=== PATIENT | male | born 1975 | race Caucasian/White ===

== ENCOUNTER 2017-11-30 13:57 | Outpatient (CLI) | payer OTHER ==
[~2017-11-30 13:57] MED LIST: EPINEPHrine 1 MG/ML AMP ONE; Gadobenate Dimeglumine 529 MG/1 ML (20ML VIAL) ONE; Iopamidol 300 61% 50 ML VIAL FS ONE; Lidocaine 1% PF 10 ML AMP ONE
--- NOTE | 2017-11-30 16:37 | RAD ---
FLUOROSCOPIC GUIDED RIGHT SHOULDER ARTHROGRAM: DATE: 11/30/17. HISTORY: Right shoulder pain. FLUOROSCOPY: Total fluoroscopy time is 0.5 minutes with a total dose of 29.88 mGy. TECHNIQUE: The procedure including risks and complications were explained to the patient and informed consent wa s obtained. The patient was placed on the fluoroscopy table in the supine position. The right shoul servando was placed in external rotation. An area overlying the superior aspect of the right glenohumeral joint was marked, and the area was me ticulously prepped and draped in the usual sterile fashion. The skin and subcutaneous tissues were i nfiltrated with buffered 1% Lidocaine for local anesthesia at the intended puncture site. A 22-gauge needle was advanced into the right glenohumeral joint. The inner stylette was removed, and a small amount of contrast was injected with free flow of contrast away from the tip of the needle in the reg ion of the glenohumeral joint. As a result, approximately 12 mL of a mixture consisting of Gadoliniu m, nonionic contrast, Lidocaine, normal saline, and a small amount of epinephrine was instilled into the right glenohumeral joint. The inner stylette was replaced and the needle was removed. Hemostasi s was achieved was achieved with direct pressure. A dry sterile dressing was placed at the puncture site. The patient tolerated the procedure well and without immediate complication. The patient was transpo rted to MRI for further imaging. FINDINGS: Technically successful right shoulder arthrogram. Please see MRI right shoulder for further details. Three views right shoulder demonstrate no fracture or dislocation. The coracoclavicular and acromioc lavicular distances are within normal limits. There does appear to be mild right acromioclavicular j oint osteoarthritis. IMPRESSION: 1. Technically successful right shoulder arthrogram. 2. Right acromioclavicular joint osteoarthritis. 3. No acute osseous abnormality is seen. POS: [facility]
--- NOTE | 2017-11-30 16:52 | MRI ---
MRI RIGHT SHOULDER WITH CONTRAST: HISTORY: Shoulder pain. COMPARISON: Shoulder arthrogram same day. FINDINGS: Biceps tendon: Normal extraarticular and intraarticular biceps tendon. Glenoid labrum: There is glenolabral articular disruption of the anterior inferior labrum from 3 o'clock-5 o'clock. The labrum is torn at the chondrolabral junction with a small chondral injury adjacent to it measurin g 0.1 x 0.8 cm with the length in the craniocaudad dimension. The superior labrum is mildly frayed, although is without a definite tear. Rotator cuff: Intact. Mild bursal surface fraying in the supraspinatus myotendinous junction. No significant inte rstitial tearing. No articular surface tear. No interstitial tears. Bones: There are moderate hypertrophic degenerative osteophytes of the acromioclavicular joint. Muscles: Muscle signal and bulk is normal. Normal glenoid version. IMPRESSION: 1. Glenolabral articular disruption of the anterior inferior labrum. The labrum is torn at the albaro drolabral junction with tear extending into the adjacent articular cartilage. This tear occurs 3 -6 o'clock with the chondral defect measuring 1 x 8 mm with the length in the craniocaudal direction. 2. Intact rotator cuff. 3. Moderate hypertrophic degenerative disease acromioclavicular joint. 4. Type I acromion with mild lateral downsloping causing some low-grade bursal surface fraying of th e supraspinatus tendon. POS: [facility]
== END 2017-11-30 13:58 | disposition home or self-care (01) ==
LOC: RAD 13:57
PROVIDERS: ATTEND Orthopaedic Surgery
DX: M25.511 Pain in right shoulder (principal); M19.011 Primary osteoarthritis, right shoulder
CPT/HCPCS: 23350; A9579; J0171; J7050

== ENCOUNTER 2018-01-28 05:51 | Day surgery (SDC) | payer OTHER ==
[2018-01-26 14:20] VITALS: BMI 29.9
[2018-01-28] MEDS ORDERED: Clindamycin/D5W 600 mg/50 ml Premix Bag ONE (06:15)
[2018-01-28] MEDS ORDERED: Levofloxacin 500 mg/D5W 100 ml Premix Bag ONE (06:15)
[2018-01-28] MEDS ORDERED: Fentanyl 100 MCG/2 ML VIAL ONE ×2 (06:36→07:17)
[2018-01-28] MEDS ORDERED: Midazolam HCl 2 mg/2 ml Vial ONE (06:36)
[2018-01-28 06:38] LABS: #Basophils 0.1 thou/uL (0.0-0.2); #Eosinphils 0.2 thou/uL (0.0-0.7); #Lymphocytes 2.4 thou/uL (1.20-3.40); #Monocytes 0.5 thou/uL (0.11-0.59); #Neutrophils 2.9 thou/uL (1.40-6.50); %Basophils 1.4 % (0.0-1.0); %Eosinophils 3.8 % (0.0-10.0); %Lymphocytes 38.8 % (21.0-51.0); %Monocytes 8.7 % (0.0-10.0); %Neutrophils 47.3 % (42.0-75.0); Hemoglobin 13.9 g/dL (14.0-18.0); Mean Corpuscular HGB CONC 33.7 g/dL (32.0-36.0); Mean Corpuscular Hemoglobin 28.2 pg (27.0-31.0); Mean Corpuscular Volume 83.7 fL (78.0-98.0); Mean Platelet Volume 7.4 fL (7.4-10.4); Platelet Count 211 thou/uL (130-400); Red Blood Cell (RBC) Count 4.94 mill/uL (4.70-6.10); White Blood Cell (WBC) Count 6.1 thou/uL (4.8-10.8)
[2018-01-28] MEDS ORDERED: Promethazine HCl 25 MG/ML VIAL IM PRN (07:01)
[2018-01-28] MEDS ORDERED: Ondansetron HCl/PF 4 MG/2 ML Vial IVP PRN (07:01)
[2018-01-28] MEDS ORDERED: Ropivacaine 0.2% 550 ML 550 ML NERVE BLCK SCH (07:01)
[2018-01-28] MEDS ORDERED: HYDROcodone/Acetaminophen 10/325 mg Tablet PO PRN ×2 (07:01)
[2018-01-28] MEDS ORDERED: Zolpidem Tartrate 5 MG TAB PO PRN (07:01)
[2018-01-28] MEDS ORDERED: traMADol HCl 50 MG TAB PO PRN ×2 (07:01)
[2018-01-28] MEDS ORDERED: Ketorolac Tromethamine 30 MG/ML VIAL IVP PRN (07:01)
[2018-01-28] MEDS ORDERED: Fentanyl 100 MCG/2 ML VIAL IV PRN (07:03)
[2018-01-28 07:04] LABS: Anion Gap 12 mmol/L (10-20); BUN (Urea Nitrogen) 13 mg/dL (8.9-20.6); Calc. Creatinine Clearance 130 mL/min (70-130); Calcium 9.4 mg/dL (7.8-10.44); Carbon Dioxide 27 mmol/L (22-29); Chloride 106 mmol/L (98-107); Estimated GFR-MDRD 81; Glucose 96 mg/dL (70-105); Potassium 4.8 mmol/L (3.5-5.1); Sodium 140 mmol/L (136-145)
[2018-01-28] MEDS ORDERED: Ropivacaine HCl/PF 1,100 MG in Sodium Chloride 0.9% 440 ML NERVE BLCK SCH (08:57)
--- NOTE | 2018-01-28 10:34 | OP ---
DATE OF PROCEDURE: 01/28/2018 TITLE OF PROCEDURE: Right shoulder arthroscopic Bankart repair. PREOPERATIVE DIAGNOSIS: Inferior labrum tear, right shoulder. POSTOPERATIVE DIAGNOSES: Inferior labrum tear, right shoulder. SURGEON: Randy Fleming M.D. RESPIRATORY SUPERVISOR: Geo West PA-C. BLOOD LOSS: Minimal. SPECIMEN: None. DRAINS: None. COMPLICATIONS: None. NARRATIVE REPORT: The patient was taken to the operating room where general anesthesia induced. The patient was placed in left lateral decubitus position. Arm was prepped and draped in the usual ster ile fashion. Scope was placed in the posterior portal. Two anterior portals were created, 1 very lo w and 1 through the interval. I identified the tear easily. I used a sharp elevator to elevate the labrum off of the neck of the glenoid down to the 6 o'clock position, got down to bleeding bone. I p laced 2 knotless Arthrex suture anchors through the anterior labrum and then threaded through the ant erior and inferior glenoid and passed very good stitch through the labrum and sewed the labrum back d own to the bleeding bone. I tried to pass a third one up above, but there really was very inadequate tissue in this area, so I abandoned that. The shoulder was then drained. Portals closed with nylon sutures. Sterile dressings applied.
[2018-01-28] MEDS ORDERED: Ketorolac Tromethamine 30 MG/ML VIAL ONE (12:25)
[2018-01-28] MEDS ORDERED: Dexamethasone 20 MG/5 ML VIAL ONE (12:25)
[2018-01-28] MEDS ORDERED: Glycopyrrolate 0.2 MG/ML 5 ML SYRINGE ONE (12:25)
[2018-01-28] MEDS ORDERED: PROPOFOL 200 MG/20 ML VIAL ONE (12:25)
[2018-01-28] MEDS ORDERED: Ondansetron HCl/PF 4 MG/2 ML Vial ONE (12:25)
[2018-01-28] MEDS ORDERED: Lidocaine 1% PF 5 ML VIAL ONE (12:25)
[2018-01-28] MEDS ORDERED: Ropivacaine 0.5% HCl/PF (150 MG/30 ML VIAL) ONE (13:48)
[2018-01-28] MEDS ORDERED: Ropivacaine 0.2% HCl/PF (40 MG/20 ML VIAL) ONE (13:48)
== END 2018-01-28 12:05 | disposition home or self-care (01) ==
LOC: SDC 05:51 → EEVIPCON 05:51 → SDC 12:05
PROVIDERS: ATTEND Orthopaedic Surgery
PROC: 0RQJ4ZZ Repair Right Shoulder Joint, Percutaneous Endoscopic Approach (ICD-10-PCS; principal; 2018-01-28)
DX: S43.431A Superior glenoid labrum lesion of right shoulder, initial encounter (principal); K21.9 Gastro-esophageal reflux disease without esophagitis; E78.00 Pure hypercholesterolemia, unspecified; M19.011 Primary osteoarthritis, right shoulder; Z79.899 Other long term (current) drug therapy; Z88.0 Allergy status to penicillin
CPT/HCPCS: 80048; 85025; A4306; G8984-GP-CK; G8985-GP-CK; G8986-GP-CK; J1100; J1885; J1956; J2001; J2250; J2405; J2704; J2795; J3010; J3490; J7050

== ENCOUNTER 2018-11-26 23:06 | Emergency (ER) | payer OTHER ==
[2018-11-26] MEDS ORDERED: cefTRIAXone\\ROCEPHIN 1 GM VIAL ONE (23:37)
[2018-11-26] MEDS ORDERED: Lidocaine 1% PF 5 ML VIAL ONE (23:37)
[2018-11-26] MEDS ORDERED: Ketorolac Tromethamine 30 MG/ML VIAL ONE (23:37)
== END 2018-11-27 00:10 | disposition home or self-care (01) ==
LOC: SCSER 23:06
DX: H65.01 Acute serous otitis media, right ear (principal); K21.9 Gastro-esophageal reflux disease without esophagitis; E78.5 Hyperlipidemia, unspecified; Z79.899 Other long term (current) drug therapy
CPT/HCPCS: 96372; J0696; J1885; J2001

== ENCOUNTER 2022-09-02 14:46 | Outpatient (CLI) | payer BC | END 2022-09-02 14:47 | disposition home or self-care (01) | LOC: BICULT 14:46 | PROVIDERS: ATTEND Family Medicine | DX: M79.651 Pain in right thigh (principal) | CPT/HCPCS: 76999 ==

== ENCOUNTER 2025-05-31 14:02 | Outpatient (CLI) | payer BC | END 2025-05-31 14:03 | disposition home or self-care (01) | LOC: MRI 14:02 | PROVIDERS: ATTEND Family Medicine | DX: M54.16 Radiculopathy, lumbar region (principal); Z98.890 Other specified postprocedural states; M48.061 Spinal stenosis, lumbar region without neurogenic claudication; M48.07 Spinal stenosis, lumbosacral region | CPT/HCPCS: 72148 ==